=== PATIENT | female | born 1950 | race Caucasian/White ===

== ENCOUNTER 2020-12-07 20:51 | Emergency (ER) | payer MEDICARE ==
[~2020-12-07] VITALS: Ht 167.6 cm; Wt 72.7 kg
[2020-12-07] MEDS ORDERED: XANA0.25 PO (21:29)
[2020-12-07] MEDS ORDERED: PRAV20TA2 PO (21:29)
[2020-12-07] MEDS ORDERED: LEVO75TA4 PO (21:29)
[2020-12-07] MEDS ORDERED: LISI30TA4 PO (21:29)
[2020-12-07 21:33] LABS: BASO % 0.5 % (0.0-1.0); EOS # 0.3 10^3/uL (0.0-0.5); EOS % 3.4 % (0.0-3.0); HEMATOCRIT 38.6 % (36.0-47.0); HEMOGLOBIN 12.6 g/dl (12.0-15.5); LYMPH # 1.9 10^3/uL (1.5-5.0); LYMPH % 21.7 % (24.0-44.0); MEAN CORPUSCULAR HEMOGLOBIN 29.9 pg (27.0-33.0); MEAN CORPUSCULAR HGB CONC 32.6 g/dl (32.0-36.5); MEAN CORPUSCULAR VOLUME 91.5 fl (80.0-96.0); MONO # 0.7 10^3/uL (0.0-0.8); MONO % 8.2 % (2.0-8.0); NEUTROPHILS # 5.8 10^3/uL (1.5-8.5); PLATELET COUNT, AUTOMATED 237 10^3/uL (150-450); RED BLOOD COUNT 4.22 10^6/uL (4.00-5.40); WHITE BLOOD COUNT 8.7 10^3/uL (4.0-10.0)
[2020-12-07 21:45] VITALS: BP 194/91
[2020-12-07] MEDS ORDERED: LABETALOL 100MG/20ML VIAL IV STA (21:45)
--- NOTE | 2020-12-07 22:27 | REPVR ---
PROCEDURE INFORMATION: Exam: XR Chest Exam date and time: 12/07/2020 9:07 PM Age: 69 years old Clinical indication: Other: Chest pain TECHNIQUE: Imaging protocol: XR of the chest. Views: 1 view. COMPARISON: No relevant prior studies available. FINDINGS: Lungs: There is no evidence of localized infiltrate. Pleural spaces: There is no evidence of pneumothorax or pleural effusion. Heart/Mediastinum: The heart is normal in size. Bones/joints: There is osteophyte formation of the thoracic spine. IMPRESSION: Clear appearing lungs. Electronically signed by: Giorgi Islas On 12/07/2020 22:27:20 PM
[2020-12-07 22:44] LABS: ALT/SGPT 24 U/L (12-78); BILIRUBIN,DIRECT 0.2 MG/DL (0.0-0.2); BILIRUBIN,TOTAL 0.5 MG/DL (0.2-1.0); BLOOD UREA NITROGEN 13 MG/DL (7-18); CALCIUM LEVEL 9.7 MG/DL (8.8-10.2); CARBON DIOXIDE LEVEL 28 MEQ/L (21-32); CHLORIDE LEVEL 107 MEQ/L (98-107); CK-MB VALUE MASS 1.4 NG/ML (<3.6); CPK CREATINE PHOSPHOKINASE 81 U/L (26-192); CREATININE FOR GFR 0.84 MG/DL (0.55-1.30); GLOMERULAR FILTRATION RATE > 60.0 (>45); GLUCOSE, FASTING 106 MG/DL (70-100); LIPASE 29 U/L (73-393); MB/CK RELATIVE INDEX 1.73 (< OR =4); POTASSIUM SERUM 3.9 MEQ/L (3.5-5.1); SODIUM LEVEL 141 MEQ/L (136-145); TOTAL PROTEIN 7.1 GM/DL (6.4-8.2); TROPONIN I < 0.02 NG/ML (< 0.10)
[2020-12-07] MEDS ORDERED: ALPRAZolam 0.25 MG TAB PO ONE (23:20)
[2020-12-07] MEDS ORDERED: IBUPROFEN 600MG TAB PO ONE (23:20)
--- NOTE | 2020-12-08 00:56 | REPVR ---
PROCEDURE INFORMATION: Exam: CT Head Without Contrast Exam date and time: 12/07/2020 10:51 PM Age: 69 years old Clinical indication: Other: Weakness; Additional info: Numbness TECHNIQUE: Imaging protocol: Computed tomography of the head without contrast. Radiation optimization: All CT scans at this facility use at least one of these dose optimization techniques: automated exposure control; mA and/or kV adjustment per patient size (includes targeted exams where dose is matched to clinical indication); or iterative reconstruction. COMPARISON: No relevant prior studies available. FINDINGS: Brain: Mild age-related volume loss. No acute intracranial hemorrhage, midline shift or intracranial mass effect. No cerebral edema. Cerebral ventricles: No hydrocephalus. Paranasal sinuses: Visualized sinuses are unremarkable. No fluid levels. Mastoid air cells: Visualized mastoid air cells are well aerated. Bones/joints: Unremarkable. No acute fracture. Soft tissues: Unremarkable. IMPRESSION: No acute intracranial abnormality. Electronically signed by: Steve Rincon On 12/08/2020 00:55:39 AM
[2020-12-08 01:40] LABS: CK-MB VALUE MASS 1.7 NG/ML (<3.6); CPK CREATINE PHOSPHOKINASE 69 U/L (26-192); MB/CK RELATIVE INDEX 2.46 (< OR =4); TROPONIN I < 0.02 NG/ML (< 0.10)
[2020-12-08 03:45] VITALS: BP 115/58
--- NOTE | 2020-12-08 07:31 | ECGEPIP ---
[facility] - ED Test Date: 2020-12-07 Pat Name: KULWANT FORBES Department: Room: - Gender: Female Tooling Engineering Tech: MCKENZIE : 1950 Requested By: TRENA MARQUEZ Order Number: [id number] Reading MD: Damon Sainz Measurements Intervals [place] Rate: 70 P: 10 W[place]: 160 QRS: 62 QRSD: 88 T: 10 QT: 420 QTc: 453 Interpretive Statements Sinus rhythm with premature atrial complexes NSTTW ABNORMALITY(S) NO PRIORS FOR COMPARISON Electronically Signed on 12-08-2020 7:31:36 EDT by Damon Sainz
--- NOTE | 2020-12-08 07:37 | ECGEPIP ---
[facility] - ED Test Date: 2020-12-08 Pat Name: KULWANT FORBES Department: Room: - Gender: Female Storage Garage Attendant: MITZI : 1950 Requested By: TRENA MARQUEZ Order Number: [id number] Reading MD: Damon Sainz Measurements Intervals [place] Rate: 58 P: 32 [place]: 166 QRS: 19 QRSD: 74 T: 26 QT: 462 QTc: 453 Interpretive Statements Sinus bradycardia POOR R WAVE PROGRESSION NSTTW ABNORMALITY(S) SIMILAR TO 12/07/20 Electronically Signed on 12-08-2020 7:37:36 EDT by Damon Sainz
== END 2020-12-08 04:12 | disposition home or self-care (01) ==
LOC: M ED 20:51
DX: R07.89 Other chest pain (principal); R20.2 Paresthesia of skin; I10 Essential (primary) hypertension; E78.5 Hyperlipidemia, unspecified; I25.10 Atherosclerotic heart disease of native coronary artery without angina pectoris; Z79.899 Other long term (current) drug therapy; Z88.1 Allergy status to other antibiotic agents